=== PATIENT | female | born 1940 | race Caucasian/White ===

== ENCOUNTER 2018-01-06 09:25 | Emergency (ER) | payer OTHER ==
[2018-01-06] MEDS ORDERED: ACETAMINOPHEN 325 MG TABLET (FP) PO ONE (09:30)
[2018-01-06 09:45] VITALS: BP 149/79; PULSE 83; TEMP 98.1; BMI 24.2
[2018-01-06] MEDS ORDERED: ACETAMINOPHEN 325 MG TABLET (FP) ONE (09:46)
--- NOTE | 2018-01-06 10:03 | PDOC ---
History of Present Illness - General Chief Complaint: Pain Stated Complaint: RT KNEE PAIN Time Seen by Provider: 01/06/18 09:48 History Source: Patient Exam Limitations: No Limitations - History of Present Illness Initial Comments: 01/06/18 10:16 Rossy Mock 77 YOF with h/o chronic back pain and arthritis presenting with atraumatic right knee pain x 5 days, worse with standing and walking. Has been taking NSAIDS with mild relief x 1 day. She typically walks 3 miles a day with her dog, but yesterday only able to tolerate 1 mile before pain set in. She feels she may have over exerted herself yesterday, exacerbating her knee pain. no falls or trauma. No fevers or chills or skin or neuro changes. 01/06/18 10:17 Past History - Past Medical History Allergies/Adverse Reactions: Allergies Allergy/AdvReac Type Severity Reaction Status Date / Time No Known Drug Allergies Allergy Verified 01/06/18 09:40 Home Medications: Ambulatory Orders NK [No Known Home Medication] 12/11/17 Anemia: No Asthma: No Cancer: No Cardiac Disorders: No CVA: No COPD: No CHF: No Dementia: No Diabetes: No GI Disorders: No Disorders: No HTN: No Hypercholesterolemia: No Liver Disease: No Seizures: No Thyroid Disease: No - Surgical History Abdominal Surgery: No Appendectomy: Yes ( CHILD) Cardiac Surgery: No Cholecystectomy: No Lung Surgery: No Neurologic Surgery: No Orthopedic Surgery: No - Suicide/Smoking/Psychosocial Hx Smoking History: Former smoker Have you smoked in the past 12 months: No If you are a former smoker, when did you quit?: 1975 Information on smoking cessation initiated: No Hx Alcohol Use: No (3x/ wk) Drug/Substance Use Hx: No Substance Use Type: Alcohol Hx Substance Use Treatment: No Trauma Specific PMHX - Complaint Specific PMHX Arthritis: Yes Review of Systems - Review of Systems Able to Perform ROS?: Yes Comments:: 01/06/18 10:17 Constitutional: no fevers or chills. HEENT: no headache or dizziness. CVS: no cp or syncope. Resp: no sob. Abdomen: no abdominal pain, nausea or vomiting. MUSCULOSKELETAL: +joint pain, no swelling. No neck pain. +chronic back pain. SKIN: no redness or skin changes, no discharge, no rash. Hematologic: no easy bruising/bleeding. NEUROLOGIC: No headache, dizziness, LOC or altered mental status. No weakness, numbness or tingling. All other systems reviewed and negative, or as documented in HPI. *Physical Exam - Vital Signs Last Vital Signs Temp Pulse Resp BP Pulse Ox 98.1 F 83 18 149/79 99 01/06/18 09:25 01/06/18 09:25 01/06/18 09:25 01/06/18 09:25 01/06/18 09:25 - Physical Exam Comments: 01/06/18 10:18 General: NAD, well appearing Vascular: 2+ DP/radialis pulses Focused MSK/Neuro Exam notable for soft compartments. +right knee med/lateral TTP, mild warmth but no overlying edema/crepitus or laxity or skin changes to suggest infection. +quadriceps tenderness, with flexion/extension Cap refill <2 sec. Proximal and distal strength 5/5 - equal and symmetric. Plantar flexion and dorsiflexion 5/5. FROM. Sensation grossly intact to light touch. No calf tenderness. Skin color normal color, warm and well perfused. 01/06/18 10:20 ED Treatment Course - RADIOLOGY Radiology Studies Ordered: Category Date Time Status KNEE 4 POS-RIGHT [RAD] Stat Radiology 01/06/18 09:29 Ordered - Medications Given in the ED: ED Medications Discontinued Medications Generic Name Dose Route Start Last Admin Trade Name Freq PRN Reason Stop Dose Admin Acetaminophen 650 mg 01/06/18 09:30 01/06/18 09:47 Tylenol - PO 01/06/18 09:31 650 mg ONCE ONE Administration Medical Decision Making - Medical Decision Making 01/06/18 10:21 77 YOF with arthritis/back pain p/w atraumatic right knee pain, worse with standing and walking. DDx. arthritis, knee effusion, knee sprain. Hoff's cyst. clinically considered but doubt septic arthritis or gout/infection, as no skin findings and 1 week chronicity of sx w/o systemic findings. no palp knee effusion on exam to warrant tap. no posterior popliteal or deep venous system involvement to suggest DVT or Hoff's cyst/rupture. XR right knee: no acute findings, no suprapatellar effusion or bony abnormalities. given tylenol for pain, ambulatory with her compression wrap and stable with gait. no neuro or msk deficits. Pt informed of my clinical impression, treatment recommendations and disposition plan. All questions answered to patient's satisfaction and she expressed understanding and comfort with this. Reasons for returning to the ED sooner discussed with the patient otherwise, follow up with her primary care physician. Discussed results with patient. RHODA wrap for comfort, which she is currently using already with relief. Rest ice and elevation with pillows. Pain control with OTC meds including motrin/tylenol PRN; no narcotics. Ortho followup provided. pt declined walker assistance/cane. instructions on balancing activity with adequate rest. fall prevention safety precautions provided and discussed. 01/06/18 11:03 01/06/18 11:27 01/06/18 11:27 *DC/Admit/Observation/Transfer Diagnosis at time of Disposition: Right knee pain Qualifiers: Chronicity: unspecified Qualified Code(s): M25.561 - Pain in right knee - Discharge Dispostion Disposition: HOME Condition at time of disposition: Stable - Referrals Referrals: Misha Ray MD [Staff Physician] - - Patient Instructions Printed Discharge Instructions: DI for Knee Pain Additional Instructions: Pt informed of my clinical impression, treatment recommendations and disposition plan. Your X rays were negative for fluid or fracture/bony injuries. All questions answered to patient's satisfaction and she expressed understanding and comfort with this. Reasons for returning to the ED sooner discussed with the patient otherwise, follow up with her primary care physician. Discussed results with patient. RHODA wrap for comfort, which she is currently using already with relief. Rest ice and elevation with pillows. Pain control with OTC meds including motrin/tylenol PRN; Ortho followup provided - Dr. Ray group. you may use walker or cane for assistance walking to prevent falls.. instructions on balancing activity with adequate rest. FALL PREVENTION AT HOME WHAT YOU NEED TO KNOW There are many different factors that can increase your risk of falls. Falls can happen any time, but the majority of them occur in the home. Fall prevention includes ways to make your home and other areas safer. It also includes ways you can move more carefully to prevent a fall. Health conditions that cause changes in your blood pressure, vision, or muscle strength and coordination may increase your risk for falls. Medicines, including anesthesia, may increase your risk for falls if they make you dizzy, weak, or sleepy. FALL PREVENTION TIPS Stand or sit up slowly. This may help you keep your balance and prevent falls. Do not walk and talk at the same time. Concentrate on the task of walking and continue the conversation after you've reached a safe place. Wear shoes that fit well and have soles that nursing professor. Wear shoes both inside and outside. Use slippers with good nursing professor. Avoid shoes with high heels. Use assistive devices as directed. Your healthcare provider may suggest that you use a cane or walker to help you keep you balance. Be sure you have adequate lighting throughout your house. Keep paths clear. Remove books, shoes and other objects from walkways and stairs. Keep cords for telephones and lamps out of the way so you dont need to walk over them. Remove small rugs or secure them with double-sided tape. This will prevent you from tripping. Use a nightlight when getting out of bed at night. Stay active to maintain overall strength and endurance. Know your limitations. If there is a task you can not complete with ease, do not risk a fall by trying to complete it. Call 911 or have someone else call if: You have fallen and are unconscious You have fallen and cannot move part of your body Contact your healthcare provider if: You have fallen and have pain or a headache You have questions or concerns about your condition or care. - Post Discharge Activity
== END 2018-01-06 11:20 | disposition home or self-care (01) ==
LOC: FER 09:25
DX: M25.561 Pain in right knee (principal); G89.29 Other chronic pain; M54.9 Dorsalgia, unspecified; Z87.891 Personal history of nicotine dependence
CPT/HCPCS: 73564-TC-RT-FY; 99283-25

== ENCOUNTER 2022-07-28 13:25 | Emergency (ER) | payer OTHER ==
[2022-07-28 13:40] VITALS: BP 168/72; PULSE 73; RESP 18; TEMP 97.7; BMI 24.1
[2022-07-28] MEDS ORDERED: KETOROLAC TROMETHAMINE 15 MG/ML VIAL IM ONE (13:53)
[2022-07-28] MEDS ORDERED: KETOROLAC TROMETHAMINE 15 MG/ML VIAL ONE (13:58)
[2022-07-28] MEDS ORDERED: LIDOCAINE 5% TOPICAL PATCH TP ONE (15:00)
[2022-07-28] MEDS ORDERED: DEXAMETHASONE SOD PHOSPHATE 10 MG/1 ML VIAL IM ONE (15:56)
[2022-07-28] MEDS ORDERED: DEXAMETHASONE SOD PHOSPHATE/PF 10 MG/ML SDV ONE (15:57)
[2022-07-28] MEDS ORDERED: CYCLOBENZAPRINE HCL 10 MG TABLET (FP) PO ONE (16:21)
[2022-07-28] MEDS ORDERED: CYCLOBENZAPRINE HCL 5 MG TABLET ONE (16:22)
== END 2022-07-28 17:00 | disposition home or self-care (01) ==
LOC: FER 13:25
PROC: 3E023GC Introduction of Other Therapeutic Substance into Muscle, Percutaneous Approach (ICD-10-PCS; principal; 2022-07-28)
DX: M54.50 Low back pain, unspecified (principal)
CPT/HCPCS: 72100-TC-FY; 99284-25; J1100